=== PATIENT | male | born 1955 | race Caucasian/White ===

== ENCOUNTER → 2020-07-05 | Outpatient (CLI) | payer BC ==
[~2020-07-05] MED LIST: CEPH500C PO; CPR500T PO; HYDR-91 PO; HYOS0.1216 PO; IBUP-15 PO; LEVO500T2 PO; MUPI22OI29 NSEACH; PHEN200T27 PO; REGADENOSON 0.4 MG/5 ML SYR (LEXISCAN) IV ONE; TMSL.4C PO
[2020-07-05 09:17] VITALS: BP 136/79
--- NOTE | 2020-07-09 14:42 | Cardiology Stress Test Report ---
Stress Test Report Type of NM Stress Test: Test Type: LEXISCAN 0.4MG/5ML Date of Procedure/Referring: Date of Procedure: Jul 05, 2020 PCP Carlos Burrell MD Admitting Physician Ulices Fernandez MD Indications: hypertension Baseline Heart Rate: 65 Baseline Blood Pressure: Blood Pressure Systolic: 136 Blood Pressure Diastolic: 79 Baseline EKG: Baseline EKG: sinus rhythm Summary & Conclusion: Summary: The patient was brought to the stress lab after informed consent was taken. S tress test was performed according to the Lexiscan protocol. 0.4 mg of IV Lexiscan was given. Low-grade exercise was performed. Baseline EKG showed sinus rhythm at 65 BPM, blood pressure 136/79 mmHg. Maximum heart rate of 90 BPM blood pressure 137/76 mmHg. Patient did not have any chest pain, arrhythmias or ST segment changes during the stress test. 10.88 mCi of Myoview were given for rest imaging and 31.6 mCi of Myoview given for stress imaging. Transient ischemic dilatation score 1.09, EF 51 percent. Normal wall motion. small mild apical reversible defect. Conclusion: Pharmacological stress test was negative for ischemia. Normal LV function with no wall motion abnormalities. small mild reversible apical defect. low risk scan. Carlos BURRELL MD Jul 09, 2020 14:42
== END ==
LOC: CARD 08:15
PROVIDERS: ATTEND Internal Medicine Interventional Cardiology
DX: I10 Essential (primary) hypertension (principal); Z87.891 Personal history of nicotine dependence; Z82.49 Family history of ischemic heart disease and other diseases of the circulatory system; R06.02 Shortness of breath
CPT/HCPCS: 78452; 93017; A9502

== ENCOUNTER → 2020-07-06 | Outpatient (CLI) | payer BC ==
[2020-07-05 09:17] VITALS: BP 136/79
--- NOTE | 2020-07-05 09:22 | NUR ---
charted on wrong patient account number. disregard charting for lexiscan.
[~2020-07-06] VITALS: Ht 180 cm; Wt 99.0 kg
[~2020-07-06] MED LIST changes: +CATHETER FLUSH 10 ML SYR IV PRN; -REGADENOSON 0.4 MG/5 ML SYR (LEXISCAN) IV ONE
== END ==
LOC: CARD 10:00
PROVIDERS: ATTEND Internal Medicine Interventional Cardiology
DX: I10 Essential (primary) hypertension (principal); R06.02 Shortness of breath; Z82.49 Family history of ischemic heart disease and other diseases of the circulatory system; Z87.891 Personal history of nicotine dependence
CPT/HCPCS: 93306

== ENCOUNTER 2020-12-19 14:24 | Emergency (ER) | payer BC ==
[~2020-12-19] VITALS: Ht 180 cm; Wt 97.5 kg
[~2020-12-19 14:24] MED LIST changes: -CATHETER FLUSH 10 ML SYR IV PRN
[2020-12-19] MEDS ORDERED: morphine INJ 10 MG/ML 1ML (SYR OR VIAL) IVP STA (14:34)
[2020-12-19] MEDS ORDERED: ORPHENADRINE 60 MG/2 ML (NORFLEX) AMP (ED ONLY) IM ONE (14:45)
--- NOTE | 2020-12-19 15:30 | ED Back Pain ---
General Chief Complaint: Back Problems Stated Complaint: BACK PAIN Nursing Triage Note: pt presents to ed with complaints of back pain that radiates down l leg after bending over the bed of a truck a week ago. reports he hasnt been able to walk for a few days and has mainly just stayed in bed. Nursing Sepsis Screen: No Definite Risk Source of Information: Patient Exam Limitations: No Limitations History of Present Illness Date Seen by Provider: Dec 19, 2020 Time Seen by Provider: 14:30 Initial Comments This 65-year-old gentleman presents to the emergency room with severe left lower back pain radiating down into the leg, sometimes all the way down to the heel. There is some subtle weakness in his lower extremities as well. He sometimes has numbness and pain in both medial thighs. He denies any bowel or bladder dysfunction. He has felt a little constipated the last couple of days. He had a minor flareup of back pain about 2 weeks ago. He recovered for a couple of days. He then leaned over the bed of his pickup truck to reach an object and felt a popping sensation while he was rocking toward the object. He then developed severe pain that he has been struggling with for the past 8 days. He has been on 2 rounds of steroids, muscle relaxers, and hydrocodone without sufficient relief. He has not walked for 2 days. Allergies and Home Medications Allergies Coded Allergies: No Known Drug Allergies (Unverified , 07/10/11) Home Medications Ibuprofen 200 Mg Tablet, 1-2 EACH PO Q4HR PRN, (Reported) for pain Levofloxacin 500 Mg Tab, 500 MG PO DAILY, (Reported) start 02/07/13 through 02/11/13 Mupirocin 22 Gm Oint, 1 APPLIC NSEACH TID, (Reported) started 02/05/13- use for 5 days 3 times a day end 02/10/13 Patient Home Medication List Home Medication List Reviewed: Yes Review of Systems Constitutional: no symptoms reported EENTM: no symptoms reported Respiratory: no symptoms reported Cardiovascular: no symptoms reported Gastrointestinal: no symptoms reported Genitourinary: decreased output Musculoskeletal: see HPI Skin: no symptoms reported Psychiatric/Neurological: See HPI Past [id number] Hx Past Med/Social Hx: Reviewed Nursing Past Med/Soc Hx Patient Social History Recent Infectious Disease Expo: No Immunizations Up To Date Tetanus Booster (TDap): More than 5yrs PED Vaccines UTD: Yes Past Medical History Surgeries: Yes (umbilical hernia repair, penile i&d) Respiratory: No Cardiac: Yes High Cholesterol, Hypertension Neurological: No Reproductive Disorders: No Sexually Transmitted Disease: No Genitourinary: No Gastrointestinal: No Musculoskeletal: No Endocrine: No Cancer: Yes (radioactive seeds) Prostate Psychosocial: No Integumentary: No Blood Disorders: No Physical Exam Vital Signs Vital Signs - First Documented 12/19/20 14:38 Temp 36.5 Pulse 103 Resp 20 B/P (MAP) 158/100 (119) Pulse Ox 99 Capillary Refill : Less Than 3 Seconds Height, Weight, BMI Height: '" Weight: lbs. oz. kg; 30.00 BMI Method: General Appearance: WD/WN, Moderate Distress HEENT: Normal ENT Inspection Neck: Normal Inspection Cardiovascular: Regular Rate, Rhythm, No Edema Respiratory: Lungs Clear, Normal Breath Sounds, No Accessory Muscle Use Gastrointestinal: Non Tender, Soft Back: Other (Tenderness over the left lower lumbar region and sacroiliac region) Extremity: Normal Inspection, No Pedal Edema Neurologic/Psychiatric: Alert, Oriented x3, No Motor/Sensory Deficits, Normal Mood/Affect, photographic machine operator II-XII Norm as Tested, Other (Evaluation of lower extremities limited secondary to pain but moves both feet equally and sensation is intact) Skin: Normal Color, Warm/Dry Progress/Results/Core Measures Results/Orders My Orders Orders - RENÉ GUTIERREZ MD Morphine Injection (Morphine Injection (12/19/20 14:34) Orphenadrine Inj (Ed Only) (Norflex Inje (12/19/20 14:45) Ed Iv/Invasive Line Start (12/19/20 14:34) Mri Lumbar Spine W/O Contrast (12/19/20 14:38) Medications Given in ED Current Medications Medications Dose Ordered Sig/Claudette Route Start Time Stop Time Status Last Admin Dose Admin Orphenadrine Citrate 60 mg ONCE ONCE IM 12/19/20 14:45 12/19/20 14:46 DC 12/19/20 14:37 60 MG Vital Signs/I&O 12/19/20 12/19/20 14:38 17:09 Temp 36.5 36.5 Pulse 103 90 Resp 20 20 B/P (MAP) 158/100 (119) 152/98 (119) Pulse Ox 99 99 Blood Pressure Mean: 119 Progress Progress Note #1: Time: 15:28 Progress Note Patient received Norflex and morphine. He is in MRI at present. Progress Note #2: Progress Note MRI was reviewed. No acute injury was identified. Degenerative disease was noted. Patient's pain did improve with morphine and Norflex. He additionally took one of his hydrocodone 10 mg prior to leaving. I have made recommendations to increase the dosing and frequency of his medications. I have also encouraged him to seek referral to a spine surgeon or neurosurgeon. See discharge instructions for discussion. A disc of his imaging was sent home with him. Departure Impression Primary Impression: Degenerative disc disease, lumbar Additional Impression: Low back pain Qualified Codes: M54.42 - Lumbago with sciatica, left side; M54.41 - Lumbago with sciatica, right side Disposition: 01 HOME, SELF-CARE Condition: Improved Departure-Patient Inst. Decision time for Depature: 16:27 Referrals: MIHIR ADAMS BRIAN J MD NO,LOCAL PHYSICIAN (PCP) Primary Care Physician Patient Instructions: Low Back Pain in Adults, Radiculopathy (DC) Add. Discharge Instructions: You may use ibuprofen (Advil) up to 600 mg every 6 hours as needed for primary pain control. Add hydrocodone for pain not controlled by ibuprofen. You may increase your hydrocodone 10 mg tablets to every 4 hours as needed. If absolutely necessary, you could take up to 15 mg every 4 hours as long as this does not make you too drowsy. You may wish to add a stool softener such as Colace purchased [id number] to prevent constipation while taking hydrocodone. You may continue using cyclobenzaprine for muscle spasms. Contact Dr. Cazares's office and seek referral to a neurosurgeon or spine jacinta geon. Dr. Adams and Dr. Hopkins our spine surgeons with the [facility] system. Dr. Dixon and Dr. Carvajal are neurosurgeons with the [facility] system. Call with questions or concerns. Return to the emergency room if you have worsening symptoms, especially if you develop progressive weakness in your legs, unrelenting pain, difficulty controlling bowels or bladder, or numbness in your groin. All discharge instructions reviewed with patient and/or family. Voiced understanding. Copy Copies To 1: MIKA CAZARES MD, JOSHUA T MD Mar 3, 2021 15:30
--- NOTE | 2020-12-19 15:48 | Diagnostic Imaging Report ---
PROCEDURE: MRI lumbar spine. TECHNIQUE: Multiplanar, multisequence MRI of the lumbar spine was performed without contrast. INDICATION: Back pain There are no prior MRI examinations available for comparison. The T2 parasagittal images do show a mild compression deformity of the anterior 3rd of the superior endplate of L5. I suspect that this is long-standing in nature and either due to prior trauma or degenerative disease.. There is no abnormal signal arising from the osseous structures to indicate bone edema or fracture. The T2 parasagittal images show the vertebral body heights and alignment to be generally within normal limits. There is narrowing and desiccation of disc at the L4-L5 level and there is mild narrowing of the neural foramen bilaterally at L4-L5 as well. There is no evidence for high-grade central stenosis at the L5-S1 level. There is also mild bilateral narrowing of the neural foramen. The remainder of the lumbar spine is unremarkable for spinal stenosis or nerve root encroachment. There is no evidence for cord lesion. However there is a linear area of increased signal extending through the cord longitudinally on the T2 sagittal series. This may merely represent a prominent central canal. It would be possible but less likely that this is a small syrinx. This measures 1.4 x 33.4 mm in maximum AP and longitudinal dimensions. This area of altered signal extends to the mid body of T11 to the mid body of T12. There is no sign of a paraspinal mass. IMPRESSION: 1. The mild deformity of the anterior superior endplate of L5 appears to be long-standing in nature. Whether this is due to prior trauma or degenerative disease is not certain. There is no acute bony abnormality noted. 2. There is no evidence for a high-grade central stenosis but there is mild neural foraminal narrowing bilaterally at L4-L5 and L5-S1. 3. The linear area of altered signal within the distal cord is of uncertain etiology. Considerations as above. Dictated by: Dictated on workstation # [id number]
[2020-12-19 17:09] VITALS: BP 152/98
== END 2020-12-19 17:09 | disposition home or self-care (01) ==
LOC: EDUNIT# 14:24 → ER 14:26
DX: M51.36 Other intervertebral disc degeneration, lumbar region (principal); Z85.46 Personal history of malignant neoplasm of prostate
CPT/HCPCS: 72148